=== PATIENT | female | born 1960 | race Asian ===

== ENCOUNTER 2017-11-02 10:41 | Emergency (ER) | payer MEDICAID ==
--- NOTE | 2017-11-02 10:59 | ED Physician Chart ---
ED Chief Complaint/HPI - Patient Information Date Seen:: 11/02/17 Time Seen:: 10:58 Chief Complaint:: PAIN IN LT ANKLE AFTER FALL YESTERDAY. History of Present Illness:: This 57-year-old female was walking with her cane when she fell and twisted her left ankle. Since then it has been swollen and painful but she is able to weight-bear with crutches. She also had a mild Abrasion over her left knee.She denied any other injuries. Allergies:: Allergies Allergy/AdvReac Type Severity Reaction Status Date / Time Penicillins Allergy Verified 11/02/17 10:55 Family Medical History - Family Member Mother History Unknown: Yes ED Physical Exam - Physical Examination General/Constitutional: Awake, Alert, GCS 15, Non-toxic appearing, Ambulatory Head: Atraumatic Eyes: PERRL, EOMI Skin: No ecchymosis, Well hydrated ENMT: External ears, nose nl, Nasal exam nl, Oropharynx nl, Tonsils nl Neck: Nontender, Full ROM w/o pain, No JVD, No mass Respiratory: Nl effort/Exclusion, Clear to Auscultation, No Wheeze/Rhonchi/Rales Cardio Vascular: RRR, No murmur, gallop, rubs, NL S1 S2 Other Cardio Vascular comments:: The patient and has adequate pulsesIn all four extremities. GI: No tenderness/rebounding/guarding, No organomegaly, No hernia, Nondistended , No McBurney tenderness Other GI comments:: The abdomen is soft and nontenderAnd without rebound regarding.No palpable masses Or organomegaly.Rectal examination deferred at my discretion : No CVA tenderness Other Extremities comments:: The patient has a nickel size, Superficial Over the left patella.No laceration' s present. There is moderate Swelling over both theLateral and medialMalleolusOver left ankle. There is minimal tendernessOf the left ankle.Good distal pulsesWith in tact Sensation to light touch.Good strength in the toes. ED Labs/Radiology/EKG Results - Radiology Results Results: Three views of the left ankle Were negative for anyWon't bone fractures.The patient Has a very Small chip a boneWhich representsA possible devotion fracture.Mild soft tissue swelling over both the medial and lateral Malleoi. ED Assessment - Assessment General Assessment: :CASE SUMMARY:THIS 57-YEAR-OLD FEMALETRIPPED AND TWISTEDHER LEFT ANKLE YESTERDAY.TODAY THE ANKLE IS MORE SWOLLEN AND TODAYAND SHE CAME TO THE ER EVALUATION. SHE WAS AMBULATORYWITH USE OF HERCANE.X-RAYS WERE OBTAINED AND SHOWED WHAT APPEARED TO BE YOLANDA SMALLOF OCEAN FRACTURES OVER THE LATERAL MALLEOLUS.THE PATIENT WAS PLACED IN A STIRRUPANKLE SPLINTAND SHE HAD HER OWNCANE.PATIENT WAS DISCHARGED TO FOLLOW UP WITH THEIR PRIMARY CARE PHYSICIAN FOR POSSIBLE ORTHOPEDIC REFERRAL. MDM LT ANKLE INJURY: NOT OPEN FRACTURE BASED ON PHYSICA EXAM. NOT RADIO- OPAQUE FOREIN BODY BASED ON X-RAY FINDINGS. ED Septic Shock - . Is Septic Shock (SBP<90, OR Lactate>4 mmol\L) present?: No ED Reassessment (Disposition) - Reassessment Reassessment Condition:: Improved - Diagnosis Diagnosis:: LEFT ANKLE SPRAIN, SMALL AVULSION FRACTURE OF THE LEFT ANKLE. ED Discharge Plan - Patient Disposition Admit/Discharge/Transfer: PT DISCHARGED HOME Condition at Disposition: Stable Instructions: Avulsion Fracture Additional Instructions: Pls follow up with PCP in 1-2 days. Return to ER if symptoms worsen. Accepting Physician: Andrea Elena [Primary Care Provider] -
--- NOTE | 2017-11-02 13:24 | Diagnostic Imaging Report ---
Left ankle (3 views) HISTORY: Pain, trauma Soft tissue swelling particularly over the lateral aspect of the ankle. There is a sliver-like bony density adjacent to the lateral margin of the callus. A nondisplaced fracture cannot be definitely excluded. Clinical correlation is needed. If necessary, a follow-up radiograph in 5-7 days may be helpful. Additional degenerative changes noted. Spur formation noted off the dorsal and plantar aspects of the posterior calcaneus. IMPRESSION: 1. Subtle cortical irregularity with a sliver-like calcific density adjacent to the lateral aspect of the talus. A nondisplaced fracture is difficult to exclude. Clinical correlation is needed. If necessary, a follow-up radiograph in 5-7 days may be helpful. 2. Soft tissue swelling 3. Degenerative changes 4. Calcaneal spur formation
== END 2017-11-02 12:00 | disposition home or self-care (01) ==
LOC: ER 10:41
DX: S82.892A Other fracture of left lower leg, initial encounter for closed fracture (principal); S93.402A Sprain of unspecified ligament of left ankle, initial encounter; Z88.0 Allergy status to penicillin; X50.1XXA Overexertion from prolonged static or awkward postures, initial encounter; Y93.01 Activity, walking, marching and hiking; Y92.89 Other specified places as the place of occurrence of the external cause; Y99.8 Other external cause status
CPT/HCPCS: 73610-TC; Z7502